=== PATIENT | male | born 2000 | race Caucasian/White ===

== ENCOUNTER 2020-01-26 20:05 | Emergency (ER) | payer OTHER ==
[~2020-01-26] VITALS: Ht 188 cm; Wt 78.1 kg
[2020-01-26 20:15] VITALS: BP 149/71
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
[2020-01-26] MEDS ORDERED: ACETAMINOPHEN TAB 650MG DOSE (2X325MG) PO ONE (21:30)
== END 2020-01-26 22:06 | disposition home or self-care (01) ==
LOC: M ED 20:05
DX: Z04.1 Encounter for examination and observation following transport accident (principal); Z88.8 Allergy status to other drugs, medicaments and biological substances; F17.210 Nicotine dependence, cigarettes, uncomplicated

== ENCOUNTER 2020-07-17 09:58 | Emergency (ER) | payer OTHER ==
[~2020-07-17] VITALS: Ht 190.5 cm; Wt 75.3 kg
[2020-07-17 10:00] VITALS: BP 148/80
--- NOTE | 2020-07-17 11:53 | REP ---
INDICATION: r/o left torsion. COMPARISON: None. TECHNIQUE: Bilateral testicular scanning with Doppler evaluation FINDINGS: The right testicle measures 5 x 2.1 x 3.5 cm and the left testicle measures 4.6 x 1.9 x 2.6 cm. Hydh-ll-[id number] imaging shows the testicular parenchymal echo pattern to be symmetric. There are no masses. There is a normal appearing vascular pattern bilaterally. The right testicular RI is 0.54 and the left is 0.60. There is no hydrocele or significant spermatocele. An incidental 6 mm size spermatocele is seen on the right. There is no evidence of a varicocele. IMPRESSION: Within normal limits <Electronically signed by Dustin Cross > 07/17/20 [id number]
[2020-07-17 13:02] LABS: BASO % 0.5 % (0.0-1.0); EOS % 0.5 % (0.0-3.0); HEMATOCRIT 47.8 % (42.0-52.0); HEMOGLOBIN 16.2 g/dl (13.5-17.5); LYMPH # 1.8 10^3/uL (1.5-5.0); LYMPH % 30.5 % (24.0-44.0); MEAN CORPUSCULAR HEMOGLOBIN 32.7 pg (27.0-33.0); MEAN CORPUSCULAR HGB CONC 33.9 g/dl (32.0-36.5); MEAN CORPUSCULAR VOLUME 96.4 fl (80.0-96.0); MONO # 0.5 10^3/uL (0.0-0.8); MONO % 8.4 % (2.0-8.0); NEUTROPHILS # 3.4 10^3/uL (1.5-8.5); NEUTROPHILS % 59.8 % (36.0-66.0); PLATELET COUNT, AUTOMATED 223 10^3/uL (150-450); RED BLOOD COUNT 4.96 10^6/uL (4.30-6.10); WHITE BLOOD COUNT 5.7 10^3/uL (4.0-10.0)
== END 2020-07-17 14:13 | disposition home or self-care (01) ==
LOC: M ED 09:58
DX: N43.40 Spermatocele of epididymis, unspecified (principal); N50.812 Left testicular pain; F17.200 Nicotine dependence, unspecified, uncomplicated

== ENCOUNTER 2020-09-10 19:52 | Emergency (ER) | payer OTHER ==
[~2020-09-10] VITALS: Ht 190.5 cm; Wt 75.3 kg
[2020-09-10 19:52] VITALS: BP 128/73
== END 2020-09-10 21:15 | disposition left against medical advice (07) ==
LOC: M ED 19:52
DX: Z53.21 Procedure and treatment not carried out due to patient leaving prior to being seen by health care provider (principal)

== ENCOUNTER 2021-12-10 14:35 | Emergency (ER) | payer OTHER ==
[~2021-12-10] VITALS: Ht 190.5 cm; Wt 81.4 kg
[2021-12-10] MEDS ORDERED: AMOX875T2 PO (17:18)
[2021-12-10] MEDS ORDERED: AUGMENTIN 875 MG TAB PO ONE (17:20)
[2021-12-10 17:28] VITALS: BP 118/69
== END 2021-12-10 17:29 | disposition home or self-care (01) ==
LOC: M ED 14:35
DX: H66.011 Acute suppurative otitis media with spontaneous rupture of ear drum, right ear (principal); H72.92 Unspecified perforation of tympanic membrane, left ear; Z88.1 Allergy status to other antibiotic agents

== ENCOUNTER → 2023-12-14 | Outpatient (CLI) | payer OTHER ==
[~2023-12-14] MED LIST: AMOX875T2 PO
== END ==
LOC: M OUTALCOH 10:06
PROVIDERS: ATTEND Psychiatry & Neurology Psychiatry
DX: F10.10 Alcohol abuse, uncomplicated (principal); Z72.0 Tobacco use

== ENCOUNTER 2024-01-05 10:00 | Outpatient (RCR) | payer OTHER | END 2024-01-08 | LOC: M OUTALCOH 10:00 | PROVIDERS: ATTEND Psychiatry & Neurology Psychiatry | DX: F10.10 Alcohol abuse, uncomplicated (principal); Z72.0 Tobacco use ==

== ENCOUNTER 2024-01-27 16:00 | Outpatient (RCR) | payer OTHER | END 2024-02-08 | LOC: M OUTALCOH 16:00 | PROVIDERS: ATTEND Psychiatry & Neurology Psychiatry | DX: F10.10 Alcohol abuse, uncomplicated (principal); Z72.0 Tobacco use ==

== ENCOUNTER 2024-03-09 16:00 | Outpatient (RCR) | payer OTHER | END 2024-03-10 | LOC: M OUTALCOH 16:00 | PROVIDERS: ATTEND Psychiatry & Neurology Psychiatry | DX: F10.10 Alcohol abuse, uncomplicated (principal); Z72.0 Tobacco use ==

== ENCOUNTER 2024-03-30 14:51 | Outpatient (RCR) | payer OTHER | END 2024-04-07 | LOC: M OUTALCOH 14:51 | PROVIDERS: ATTEND Psychiatry & Neurology Psychiatry | DX: F10.10 Alcohol abuse, uncomplicated (principal); Z72.0 Tobacco use ==

== ENCOUNTER 2024-05-04 14:59 | Outpatient (RCR) | payer OTHER | END 2024-05-08 | LOC: M OUTALCOH 14:59 | PROVIDERS: ATTEND Psychiatry & Neurology Psychiatry | DX: F10.10 Alcohol abuse, uncomplicated (principal); Z72.0 Tobacco use ==

== ENCOUNTER 2024-06-01 16:00 | Outpatient (RCR) | payer OTHER | END 2024-06-07 | LOC: M OUTALCOH 16:00 | PROVIDERS: ATTEND Psychiatry & Neurology Psychiatry | DX: F10.10 Alcohol abuse, uncomplicated (principal); Z72.0 Tobacco use ==